=== PATIENT | female | born 1965 | race Caucasian/White ===

== ENCOUNTER → 2016-10-22 | Outpatient (CLI) | payer MEDICAID | END | disposition home or self-care (01) | LOC: CFH 08:37 | PROVIDERS: ATTEND Specialist | DX: Z12.31 Encounter for screening mammogram for malignant neoplasm of breast (principal); N63 Unspecified lump in breast | CPT/HCPCS: 77063; G0202 ==

== ENCOUNTER → 2016-11-05 | Outpatient (CLI) | payer MEDICAID | END | disposition home or self-care (01) | LOC: CFH 07:43 | PROVIDERS: ATTEND Specialist | DX: N63 Unspecified lump in breast (principal); N60.01 Solitary cyst of right breast | CPT/HCPCS: 76641; G0206 ==